=== PATIENT | female | born 1985 | race Caucasian/White ===

== ENCOUNTER 2016-05-22 07:01 | Emergency (ER) | payer OTHER ==
[~2016-05-22] VITALS: Ht 162.6 cm; Wt 97.0 kg
[~2016-05-22 07:01] MED LIST: AUGMENTIN875 MG PO; BACTRIM,SEPT1 TABLET PO; DIFLUCAN150 MG PO; MOTRIN600 MG PO; NAPROSYN500 MG PO; NO MEDS; NOHOMEMEDS; PEN-VEE K,VEET500 MG PO; PERCOCET 5/31 TABLET PO; ULTRAM50 MG PO; VALIUM5 MG PO; VICODIN,LORT1 TABLET PO
[2016-05-22 08:07] LABS: ADD MIUA? YES; BILIRUBIN NEGATIVE; BLOOD NEGATIVE; COLOR STRAW ((YELLOW)); GLUCOSE (STRIP) NEGATIVE; KETONES NEGATIVE; LEUKOCYTES SMALL; NITRITE NEGATIVE; PROTEIN (STRIP) NEGATIVE; SPECIFIC GRAVITY 1.003 (1.000-1.030); UROBILINOGEN 0.2 MG/DL (0.2-1.0)
[2016-05-22 08:12] LABS: BACTERIA RARE /HPF; EPITHELIAL CELLS 1+ /HPF; MUCUS NONE SEEN /LPF; RED BLOOD CELLS 0-5 /HPF (0-5); UCUL ADDED? NO; WHITE BLOOD CELLS 0-5 /HPF (0-5)
[2016-05-22 08:39] VITALS: BP 123/76
== END 2016-05-22 08:42 | disposition home or self-care (01) ==
LOC: EME 07:01
PROVIDERS: Physician Assistant Medical
DX: O9A.211 Injury, poisoning and certain other consequences of external causes complicating pregnancy, first trimester (principal); S29.012A Strain of muscle and tendon of back wall of thorax, initial encounter; X58.XXXA Exposure to other specified factors, initial encounter; O30.001 Twin pregnancy, unspecified number of placenta and unspecified number of amniotic sacs, first trimester; O99.331 Smoking (tobacco) complicating pregnancy, first trimester; Z3A.01 Less than 8 weeks gestation of pregnancy; F17.200 Nicotine dependence, unspecified, uncomplicated
CPT/HCPCS: 81003; 99281; 99283

== ENCOUNTER 2016-06-13 15:13 | Emergency (ER) | payer OTHER ==
[~2016-06-13] VITALS: Ht 162.6 cm; Wt 95.0 kg
[2016-06-13 16:23] LABS: BASOPHIL COUNT 0.1 K/uL (0-0.1); EOSINOPHIL (%) 2.1 % (0-5); EOSINOPHIL COUNT 0.3 K/uL (0-0.3); HEMATOCRIT 37.6 % (36.0-46.0); IMMATURE GRANULOCYTE (%) 0.4 % (0.0-0.7); IMMATURE GRANULOCYTE COUNT 0.1 K/uL; INSTRUMENT ABS NEUTROPHIL CT 11.4 K/uL; LYMPHOCYTE COUNT 3.6 K/uL (1.0-2.8); MCHC 33.8 G/DL (30.0-36.0); MCV 91.7 FL (83-99); MEAN PLAT.VOLUME 10.5 uM^3 (9.5-12.4); MONOCYTE (%) 4.6 % (3-12); MONOCYTE COUNT 0.7 K/uL (0-0.8); NEUTROPHIL (%) 70.2 % (45-76); NEUTROPHIL COUNT 11.4 K/uL (1.8-6.4); PLATELET COUNT 245 K/uL (156-360); RBC DIS.WIDTH-CV 12.1 % (11.8-14.6); RBC DIS.WIDTH-SD 40.9 % (39-53); WHITE BLOOD COUNT 16.2 K/uL (4.1-10.2)
[2016-06-13 16:37] LABS: CHLORIDE 108 mEq/L (99-109); POTASSIUM 3.4 mEq/L (3.7-5.4); SODIUM 139 mEq/L (136-147)
[2016-06-13 16:39] LABS: GLUCOSE 91 mg/dL (70-99)
[2016-06-13 16:40] LABS: ANION GAP 10 MEQ/L (2-14)
[2016-06-13 16:43] LABS: GFR ESTIMATE (CALCULATED) > 59 mL/min/
[2016-06-13 16:44] LABS: UREA NITROGEN (BUN) 4 mg/dL (9-23)
[2016-06-13 16:51] LABS: QUANTITATIVE HCG 5574.4 MIU/ML
[2016-06-13 18:40] VITALS: BP 119/77
[2016-06-14] MEDS ORDERED: TYLENOL EXTRA500 MG PO (11:35)
[2016-06-14] MEDS ORDERED: CYTOTEC200 MCG PO (11:37)
[2016-06-14] MEDS ORDERED: MOTRIN800 MG PO (14:26)
[2016-06-14] MEDS ORDERED: HYDROCODON-ACE1 EAC7 PO (14:26)
== END 2016-06-13 19:05 | disposition home or self-care (01) ==
LOC: EME 15:13
PROVIDERS: Emergency Medicine
DX: O03.4 Incomplete spontaneous abortion without complication (principal); E66.9 Obesity, unspecified; F17.200 Nicotine dependence, unspecified, uncomplicated
CPT/HCPCS: 76801; 80048; 84702; 85025; 86850; 86900; 86901; 99281; 99285; J1885; J2270; J2405; J7030

== ENCOUNTER 2016-06-14 12:41 | Day surgery (SDC) | payer OTHER ==
[~2016-06-14] VITALS: Ht 162.6 cm; Wt 94.8 kg
[~2016-06-14 12:41] MED LIST changes: +CYTOTEC200 MCG PO; +TYLENOL EXTRA500 MG PO
[2016-06-14 13:15] VITALS: BP 120/71
[2016-06-14] MEDS ORDERED: HYDROCODON-ACE1 EAC7 PO (14:26)
[2016-06-14] MEDS ORDERED: MOTRIN800 MG PO (14:26)
[2016-06-14 15:40] VITALS: BP 97/59
[2016-06-14 16:20] VITALS: BP 116/57
== END 2016-06-14 16:25 | disposition home or self-care (01) ==
LOC: SDC 12:41
PROC: 10D17ZZ Extraction of Products of Conception, Retained, Via Natural or Artificial Opening (ICD-10-PCS; principal; 2016-06-14)
DX: O03.4 Incomplete spontaneous abortion without complication (principal)
CPT/HCPCS: 85048; 88305; J1100; J1885; J2250; J2405; J3010

== ENCOUNTER 2016-07-29 17:48 | Emergency (ER) | payer OTHER ==
[~2016-07-29] VITALS: Ht 162.6 cm; Wt 91.7 kg
[~2016-07-29 17:48] MED LIST changes: +HYDROCODON-ACE1 EAC7 PO; +MOTRIN800 MG PO
[2016-07-29 17:49] VITALS: BP 130/84
== END 2016-07-29 17:59 | disposition left against medical advice (07) ==
LOC: EME 17:48
DX: R46.89 Other symptoms and signs involving appearance and behavior (principal); Z53.21 Procedure and treatment not carried out due to patient leaving prior to being seen by health care provider

== ENCOUNTER 2016-09-06 10:21 | Emergency (ER) | payer OTHER ==
[~2016-09-06] VITALS: Ht 162.6 cm; Wt 86.8 kg
[2016-09-06 11:12] LABS: ADD MIUA? YES; BILIRUBIN NEGATIVE; BLOOD SMALL; COLOR YELLOW ((YELLOW)); GLUCOSE (STRIP) NEGATIVE; KETONES NEGATIVE; LEUKOCYTES SMALL; NITRITE NEGATIVE; PROTEIN (STRIP) NEGATIVE; UROBILINOGEN 0.2 MG/DL (0.2-1.0)
[2016-09-06 11:19] LABS: BASOPHIL COUNT 0.1 K/uL (0-0.1); EOSINOPHIL COUNT 0.1 K/uL (0-0.3); HEMATOCRIT 38.8 % (36.0-46.0); IMMATURE GRANULOCYTE (%) 0.4 % (0.0-0.7); IMMATURE GRANULOCYTE COUNT 0.1 K/uL; INSTRUMENT ABS NEUTROPHIL CT 10.7 K/uL; LYMPHOCYTE COUNT 2.5 K/uL (1.0-2.8); MCH 27.8 PG (29.0-34.0); MCHC 32.2 G/DL (30.0-36.0); MCV 86.4 FL (83-99); MEAN PLAT.VOLUME 11.4 uM^3 (9.5-12.4); MONOCYTE COUNT 0.9 K/uL (0-0.8); NEUTROPHIL (%) 74.2 % (45-76); NEUTROPHIL COUNT 10.7 K/uL (1.8-6.4); PLATELET COUNT 201 K/uL (156-360); RBC DIS.WIDTH-CV 13.4 % (11.8-14.6); RBC DIS.WIDTH-SD 42.3 % (39-53); RED BLOOD COUNT 4.49 M/uL (3.80-5.20); WHITE BLOOD COUNT 14.4 K/uL (4.1-10.2)
[2016-09-06 11:34] LABS: BACTERIA RARE /HPF; EPITHELIAL CELLS 1+ /HPF; MUCUS TRACE /LPF; RED BLOOD CELLS 0-5 /HPF (0-5); UCUL ADDED? NO; WHITE BLOOD CELLS 0-5 /HPF (0-5)
[2016-09-06 11:36] LABS: CHLORIDE 110 mEq/L (99-109); POTASSIUM 3.6 mEq/L (3.7-5.4); SODIUM 140 mEq/L (136-147)
[2016-09-06 11:37] LABS: GLUCOSE 93 mg/dL (70-99)
[2016-09-06 11:39] LABS: ANION GAP 7 MEQ/L (2-14)
[2016-09-06 11:41] LABS: GFR ESTIMATE (CALCULATED) > 59 mL/min/
[2016-09-06 11:42] LABS: UREA NITROGEN (BUN) 11 mg/dL (9-23)
[2016-09-06 11:49] LABS: QUANTITATIVE HCG < 4.0 MIU/ML
[2016-09-06] MEDS ORDERED: TERAZOL 745 GM VG (14:19)
[2016-09-06 14:26] VITALS: BP 128/70
[2016-09-10 12:18] LABS: CHLAMYDIA TRACHOMATIS INVALID; NEISSERIA GONORRHOEAE INVALID
== END 2016-09-06 14:27 | disposition home or self-care (01) ==
LOC: EME 10:21
PROVIDERS: Emergency Medicine
DX: R10.30 Lower abdominal pain, unspecified (principal); B37.3 Candidiasis of vulva and vagina; M54.5 Low back pain; Z90.49 Acquired absence of other specified parts of digestive tract; F17.200 Nicotine dependence, unspecified, uncomplicated; R30.0 Dysuria
CPT/HCPCS: 80048; 81003; 84702; 85025; 87210; 87491; 87591; 99281; 99284

== ENCOUNTER 2017-07-11 23:51 | Inpatient (IN) | payer OTHER ==
[~2017-07-11] VITALS: Ht 162.6 cm; Wt 79.3 kg
[~2017-07-11 23:51] MED LIST changes: +TERAZOL 745 GM VG
[2017-07-12] VITALS (18 sets, daily range): BP systolic 107–140; BP diastolic 56–79
[2017-07-12 00:45] LABS: BASOPHIL (%) 0.5 % (0-1); BASOPHIL COUNT 0.1 K/uL (0-0.1); EOSINOPHIL (%) 1.6 % (0-5); EOSINOPHIL COUNT 0.3 K/uL (0-0.3); HEMATOCRIT 32.7 % (36.0-46.0); IMMATURE GRANULOCYTE (%) 0.4 % (0.0-0.7); LYMPHOCYTE (%) 18.4 % (15-42); LYMPHOCYTE COUNT 2.9 K/uL (1.0-2.8); MCH 28.4 PG (29.0-34.0); MCHC 33.6 G/DL (30.0-36.0); MCV 84.5 FL (83-99); MONOCYTE (%) 6.7 % (3-12); MONOCYTE COUNT 1.1 K/uL (0-0.8); NEUTROPHIL (%) 72.4 % (45-76); NEUTROPHIL COUNT 11.4 K/uL (1.8-6.4); PLATELET COUNT 214 K/uL (156-360); RBC DIS.WIDTH-CV 12.9 % (11.8-14.6); RBC DIS.WIDTH-SD 39.3 % (39-53); RED BLOOD COUNT 3.87 M/uL (3.80-5.20); WHITE BLOOD COUNT 15.7 K/uL (4.1-10.2)
[2017-07-12 01:22] LABS: AMPHETAMINE NEGATIVE (500 ng/mL); BENZODIAZEPINES NEGATIVE (150 ng/mL); COCAINE NEGATIVE (150 ng/mL); METHADONE NEGATIVE (200 ng/mL); METHAMPHETAMINE NEGATIVE (500 ng/mL); OPIATES (MORPHINE) NEGATIVE (100 ng/mL); PHENCYCLIDINE NEGATIVE (25 ng/mL); THC CANNABINOIDS NEGATIVE (50 ng/mL); TRICYCLIC ANTIDEPRESSANTS NEGATIVE (300 ng/mL)
[2017-07-12 01:23] LABS: BARBITURATES NEGATIVE (200 ng/mL); BUPRENORPHINE PRESUMPTIVE POSITIVE (10 ng/mL); OXYCODONE NEGATIVE (100 ng/mL); PROPOXYPHENE NEGATIVE (300 ng/mL)
[2017-07-13 07:27] VITALS: BP 120/59
[2017-07-13 14:23] VITALS: BP 120/71
== END 2017-07-13 17:56 | disposition home or self-care (01) | DRG 775 ==
LOC: LDRP-OP 23:51 → 2WEST 23:52 → LDRP-OP 08-28 11:06
PROVIDERS: Advanced Practice Midwife
DX: O99.824 Streptococcus B carrier state complicating childbirth (principal); O99.323 Drug use complicating pregnancy, third trimester; F11.20 Opioid dependence, uncomplicated; Z3A.37 37 weeks gestation of pregnancy; Z37.0 Single live birth; O99.344 Other mental disorders complicating childbirth; F31.9 Bipolar disorder, unspecified; O99.334 Smoking (tobacco) complicating childbirth; F17.210 Nicotine dependence, cigarettes, uncomplicated; O99.89 Other specified diseases and conditions complicating pregnancy, childbirth and the puerperium; M41.9 Scoliosis, unspecified
CPT/HCPCS: 85025; G0378; J0571; J2540; J7120